=== PATIENT | female | born 1990 | race Caucasian/White ===

== ENCOUNTER 2023-09-22 17:21 | Emergency (ER) | payer BC, SELFPAY ==
[2023-09-22 17:26] VITALS: BP 170/100
[2023-09-22 20:40] VITALS: BMI 26.9
[2023-09-22] MEDS: DECADRON 10 MG PO (21:38)
--- NOTE | 2023-09-22 23:34 | ED.MUSCINJ ---
HPI-Injury
General
Chief Complaint: Musculo-Skeletal Complaint
Source: patient
Exam Limitations: none
Time Seen by Provider: 09/22/23 20:00
Nursing documentation reviewed up to this point in time: agreed with
Travel History
Have you had any contact with someone who has COVID-19?: No
Do you have any symptoms of coronavirus? Fever > 100 degrees, chills, cough, shortness of breath, sore throat, loss of taste or smell, muscle aches, or headache?: No
History of Present Illness-Injury
Is this injury a work related problem?: No
Is pt an associate of [facility]?: No
Initial Injury comments:
Patient to ED with complaint of pain to upper back. States she was painting a few weeks ago and pain started then. She was seen by PCP and placed on Nsaids, gabapentin, norco, muscle relaxer without improvement. Complaikns of numbness and
tingling to left arm. Brought self to ED for eval.
Past History
Past History
ED Past Medical History: Other (Ulcerative Colitis); Negative Asthma, HTN, Hypercholesterolemia or NIDDM
ED Past Surgical History:
Social History
Tobacco: Non-smoker
Alcohol: None
Personal:
Living: with family
Review of Systems
Review of Systems
Allergies reviewed?: Yes
All Other Systems: ROS reviewed and negative except as documented in HPI and ROS
Constitutional: Reports no symptoms
EENT: Reports no symptoms
Respiratory: Reports no symptoms
Cardiac: Reports no symptoms
ABD/GI: Reports no symptoms
: Reports no symptoms
Musculoskeletal: Reports back pain (upper back pain)
Skin: Reports no symptoms
Neurological: Reports numbness (pins and needles to left arm)
Psychiatric: Reports no symptoms
Musculoskeletal Injury Exam
Musculoskeletal Injury Exam
Left Upper Back:
Pain with Movement?: Moderate
Tender to palpation?: Mild
Soft tissue swelling?: None
External deformity and angulation?: None
Joint effusion?: None
Contusion?: None
Strain- Sprain- Tear (Connective tissue injury)?: Moderate
Crepitus with movement?: No
Joint instability?: No
Malalignment/deformity?: No
Range of motion: Full
Distal skin color and temperature: normal-warm & good color
Capillary Refill: normal
Normal distal neurovascular exam?: Yes
Phy Exam
General Physical Exam
General Presentation: well appearing and no apparent distress
General age: appears stated age
General Skin: warm and dry
General Habitus: normal
General Mental: alert
Musculoskeletal Exam
Musculoskeletal Exam: full ROM, neuro vasc intact and other (No C-spine tenderness)
Skin Exam
Skin Exam: normal color, warm/dry and no rash
Psychiatric Exam
Psychiatric Exam: normal mood/affect
Injury Course
Orders/Labs/Results
Orders:
Orders
09/22/23 20:07
Cervical Spine 4 or 5 Vw [CR Cervical Spine 4 Or 5 Vw] Urgent
Comment:
Reason For Exam: pain
Thoracic Spine 3 Views CR [CR Thoracic Spine 3 Views] Urgent
Comment:
Reason For Exam: pain
09/22/23 21:09
Oxycodone/Acetaminophen [Percocet 5/325] 1 tablet PO NOW STA
09/22/23 21:29
Dexamethasone Pf [Decadron] 10 mg PO NOW STA
*Radiology
Radiology exam reviewed: radiology read reviewed
*Pulse Oximetry
Patient hypoxic: no
*Critical Care Note
Total Time (30-74mins, 75-104mins- exclusive of procedures): Not Applicable
ED Attending Note
-
Portions of this chart may have been created with voice recognition software.� Occasional wrong word or��sound alike� substitutions may have occurred due to the inherent limitations of voice recognition software.
Discharge Plan
Departure
Patient Disposition: Home (Routine Discharge)
Date of Disposition: 09/22/23
Time of Disposition: 21:30
Patient with high blood pressure during this ER visit?: No
Condition: Good
Covid-19: Not Applicable
Discharge Problem:
Pain, upper back
Instructions: Radiculopathy (DC), Ibuprofen, Using Cold for Pain, Back Pain
Prescriptions:
New
methylprednisolone [Medrol (Gonzales)] 4 mg tablets,dose pack
See Rx Instructions .ROUTE .COMPLEX Qty: 21 0RF
Rx Instructions:
for 6 days
No Action
tacrolimus [Prograf] 5 MG capsule
5 mg PO Q12
budesonide 9 MG tablet,delayed and ext.release
9 mg PO DAILY
mesalamine 0.375 GM capsule,extended release 24hr
0.375 gm PO DAILY
Referrals:
Yao Fang MD [Family Provider] -
Chuck Marin MD [Active] - Call in 1-3 days for appt
Interventions
Interventions:
*Risk Screen - Suicide Last Done: 09/22/23 17:26
*General Assessment Last Done: 09/22/23 17:26
*Neglect/Abuse Screening Last Done: 09/22/23 17:26
*ED COVID-19 Vaccine History Last Done: 09/22/23 17:26
*Nursing Disposition Last Done: 09/22/23 21:41
ED-Musculoskeletal Assessment Last Done: 09/22/23 20:20
Discharge Date and Time
Discharge Date/Time: 09/22/23 21:42
Print Language: NAURUAN
== END 2023-09-22 21:42 | disposition home or self-care (01) ==
LOC: EMR 17:21
PROVIDERS: EMERGENCY PHYSICIAN Emergency Medicine; FAMILY PHYSICIAN Family Medicine
DX: M54.6 Pain in thoracic spine (principal); K51.90 Ulcerative colitis, unspecified, without complications
CPT/HCPCS: 99283; 72050; 72072

== ENCOUNTER → 2024-09-13 10:36 | Outpatient (REF) | payer BC, SELFPAY ==
[2024-09-13 15:41] LABS: % Basophils 0.7 % (0-2); % Eosinophils 0.4 % (0-6); % Immature Granulocytes 0.4 % (0-0.5); % Lymphocytes 25.7 % (20.5-51.1); % Monocytes 7.1 % (1.7-9.3); % Neutrophils 65.7 % (42.2-75.2); Absolute Basophils 0.1 10^3/uL (0-0.2); Absolute Monocytes 0.5 10^3/uL (0.1-0.6); Hematocrit 38.4 % (37.0-47.0); Hemoglobin 13.1 g/dL (12.0-16.0); Mean Corp Hgb Conc. 34.1 g/dL (33.0-37.0); Mean Corpuscular Volume 87.9 fL (81.0-99.0); Mean Platelet Volume 10.1 fL (7.4-10.4); Nucleated Red Blood Cells % 0 %; Platelet Count 231 10^3/uL (130-400); Red Blood Cell Count 4.37 10^6/uL (4.20-5.40); Red Cell Dist. Width 12.6 % (11.5-14.5); White Blood Cell Count 7.6 10^3/uL (4.8-10.8)
[2024-09-13 16:45] LABS: ALT (SGPT) 16 U/L (0-35); AST (SGOT) 20 U/L (14-36); Albumin 3.8 g/dl (3.5-5.0); Alkaline Phosphatase 76 U/L (38-126); Blood Urea Nitrogen 14 mg/dl (7-17); Carbon Dioxide 26 mmol/L (22-30); Chloride 105 mmol/L (98-107); Direct Bilirubin 0.3 mg/dl (0.0-0.4); Glucose 91 mg/dl (70-99); Potassium 4.1 mmol/L (3.5-5.1); Sodium 138 mmol/L (135-145); Total Bilirubin 1.6 mg/dl (0.2-1.3); Total Protein 6.4 g/dl (6.3-8.2); eGFR > 60.00
== END ==
LOC: HWLAB 10:36
PROVIDERS: ATTENDING PHYSICIAN Internal Medicine; FAMILY PHYSICIAN Family Medicine
DX: K75.4 Autoimmune hepatitis (principal); Z51.81 Encounter for therapeutic drug level monitoring; Z79.899 Other long term (current) drug therapy
CPT/HCPCS: 36415; 80048; 80076; 80197; 85025

== ENCOUNTER 2025-03-26 21:10 | Emergency (ER) | payer BC, SELFPAY ==
[2025-03-26 21:22] VITALS: BP 137/106
[2025-03-26 23:49] VITALS: BP 131/84
--- NOTE | 2025-03-26 23:53 | EDRN ---
Pt noted pain and redness in L eye on so she started using eye drops for pink eye. Pt stopped taking the eye drops yesterday because she did not think they were helping. Pt has a headache and says when she pulls her L upper eye lid up,
she can see 'gunk' underneath but it does not come out of her eye. No visual disturbance, fever/chills, photophobia.
--- NOTE | 2025-03-27 00:55 | ED.GENMED ---
History of Present Illness
General
Chief Complaint: Eye Problems
Source: patient
Exam Limitations: none
Time Seen by Provider: 03/27/25 00:33
Nursing documentation reviewed up to this point in time: agreed with
History of Present Illness
History of Present Illness:
The patient is a 35-year-old female who presented with complaints of left eye pain and irritation that started on morning. She described the pain as a 'hot' sensation in a localized area upper eye region and noted that it tends to worsen
towards the end of the day, particularly when tired. The patient did not report any crusting in the morning and stated that light exposure does not exacerbate the symptoms. Upon raising her eyelid, she noted a visible irritation on the sclera. There
was no history of foreign body exposure, but the patient did briefly use near antibiotic eye drops that belonged to her son, although the efficacy of these drops is unknown. She has not experienced any significant relief. The patient
reported rubbing her eye, which may have contributed to a localized irritation of the sclera noted on examination. She notes very mild discomfort left forehead but no definitive headache. She has not had a fever. No vision difficulty. No
tearing. No photophobia. She does not wear contacts nor corrective lenses. She has not noticed a rash. She does note very mild itching of her left eye tonight which is new.
She had a telehealth visit with her primary care physician yesterday. No specific intervention.
Past History
Past History
ED Past Medical History: Other (Ulcerative Colitis, autoimmune hepatitis); Negative Asthma, HTN, Hypercholesterolemia or NIDDM
ED Past Surgical History:
Social History
Tobacco: Non-smoker
Alcohol: None
Personal:
Living: with family
Employment: Employed
Family History
Family History: Other (Noncontributory)
Phy Exam
Physical Exam
Physical Exam:
GENERAL: 35-year-old woman appears her stated age, bright and alert, pleasant, appears in no acute distress.
EYE: pupils equal and reactive. Extraocular muscles intact. Visual acuity grossly intact. There is no lid edema nor erythema. No periorbital edema nor erythema. Left eye visualized with Sanchez lamp and fluorescein stain. There is no corneal
abrasion. Anterior chamber is clear. There is a focal area of conjunctival irritation superior aspect of the eye. Lid everted. No foreign body nor lid erythema. Anicteric
NECK: Supple, nontender, no meningismus, no significant adenopathy.
ENT: oral mucosa is moist. No rhinorrhea.
CARDIAC: Regular rate and rhythm. no murmur.
LUNGS: no acute respiratory distress
ABDOMEN: Nontender.
NEUROLOGICAL: Alert and oriented x3, no focal neuro deficits. Gait is faye and steady.
SKIN: Warm and dry, normal color, skin intact. No rash.
MUSCULOSKELETAL: No C/C/E. peripheral pulses are full and equal b/l. No palpable tenderness.
PSYCH: Normal and appropriate interaction.
Course
Orders/Labs/Results
Orders:
Orders
03/27/25 00:54
Ofloxacin [Ocuflox] See Dose Instructions OPHTH NOW STA
03/27/25 00:55
Fluorescein Sodium [Ful-Tamia] 1 mg .ROUTE .STK-MED ONE
Vital Signs
Initial and Last Documented VS:
Initial Vital Signs
Temp Pulse Resp BP Pulse Ox
98.4 F 81 16 137/106 98
03/26/25 21:22 03/26/25 21:22 03/26/25 21:22 03/26/25 21:22 03/26/25 21:22
Last Documented Vital Signs
Temp Pulse Resp BP Pulse Ox
98.4 F 71 14 131/84 100
03/26/25 21:22 03/26/25 23:49 03/26/25 23:49 03/26/25 23:49 03/27/25 01:06
MDM/Problems Addressed
Differential Diagnosis Includes:
The Differential Diagnosis includes, in no particular order and is not limited to:
1. Conjunctivitis
2. Corneal abrasion
3. Foreign body in the eye
4. Allergic conjunctivitis
5. Iritis
6. Dry eye syndrome
7. Blepharitis
8. Episcleritis
9. Acute glaucoma
10. Herpes simplex keratitis
MDM/Problems Addressed:
Acute left eye pain, irritation
Exam notable for focal conjunctival irritation/erythema superior aspect. There is no evidence of conjunctival nor scleral defect. No chemosis. No evidence of stye formation.
No photophobia or tearing, nothing to suggest episcleritis, uveitis nor iritis.
Will treat with topical antibiotic drops and recommend avoidance of rubbing.
Follow-up with PCP versus ophthalmology for recheck.
Chronic conditions affecting care:
History of autoimmune hepatitis, ulcerative colitis. Chronically maintained on immunosuppressants.
*Pulse Oximetry
SaO2: 100
Oxygen Mode of Delivery: Room air
Patient hypoxic: no
*Critical Care Note
Total Time (30-74mins, 75-104mins- exclusive of procedures): Not Applicable
ED Attending Note
-
Portions of this chart may have been created with voice recognition software.� Occasional wrong word or��sound alike� substitutions may have occurred due to the inherent limitations of voice recognition software.
Discharge Plan
Departure
Patient Disposition: Home (Routine Discharge)
Date of Disposition: 03/27/25
Time of Disposition: 01:04
Patient with high blood pressure during this ER visit?: No
Condition: Good
Discharge Problem:
Focal conjunctivitis left eye
Instructions: Conjunctivitis (Noninfectious Pinkeye)
Prescriptions:
New
ofloxacin 0.3 % drops
2 drp ophthalmic (eye) QID Qty: 10 0RF
No Action
tacrolimus [Prograf] 5 MG capsule
5 mg PO DAILY
budesonide 9 MG tablet,delayed and ext.release
9 mg PO DAILY
letrozole 2.5 mg Tablet
7.5 mg PO DAILY
mesalamine [Apriso] 0.375 gram Capsule,Extended Release 24hr
1.5 g PO DAILY
PNV no.95-ferrous fumarate-FA [ Multivitamins] 28 mg iron- 800 mcg Tablet
1 tab PO DAILY
Referrals:
Jhoan Love [Provider Group] - Call in 1-3 days for appt
Yao Fang MD [Family Provider, [facility]] - Call in 1-3 days for appt
Interventions
Interventions:
*Risk Screen - Suicide Last Done: 03/26/25 21:22
*General Assessment Last Done: 03/26/25 21:22
*Neglect/Abuse Screening Last Done: 03/26/25 21:22
*ED- Fall Risk Assessment Last Done: 03/26/25 23:49
*Nursing Disposition Last Done: 03/27/25 01:15
Discharge Date and Time
Discharge Date/Time: 03/27/25 01:15
Print Language: BELARUSIAN
[2025-03-27] MEDS: OCUFLOX 2 DROP OPHTH (01:13)
== END 2025-03-27 01:15 | disposition home or self-care (01) ==
LOC: EMR 21:10
PROVIDERS: EMERGENCY PHYSICIAN Emergency Medicine; FAMILY PHYSICIAN Family Medicine
DX: H10.012 Acute follicular conjunctivitis, left eye (principal); K51.90 Ulcerative colitis, unspecified, without complications; K75.4 Autoimmune hepatitis
CPT/HCPCS: 99282